=== PATIENT | female | born 1950 | race Caucasian/White ===

== ENCOUNTER 2016-11-20 05:45 | Inpatient (IN) | payer MEDICARE, OTHER ==
[2016-11-20] VITALS (18 sets, daily range): BP systolic 128–179; BP diastolic 7–86; PULSE 72–89; RESP 11–22; O2SAT 92–100
[~2016-11-20] VITALS: Ht 165.1 cm; Wt 96.3 kg
[2016-11-20] MEDS: Lactated Ringer's 1,000 ML IV SCH ×7 (05:00→21:25)
[~2016-11-20 05:45] MED LIST: IBUP200C PO
[2016-11-20] MEDS ORDERED: CeFAZolin 2 Gm/50 mL D5W IV Premix IV ONE (06:00)
[2016-11-20] MEDS ORDERED: Ondansetron 2 mg/mL 2 mL Inj IVPUSH PRN (07:20)
[2016-11-20] MEDS ORDERED: MetoCLOpramide 5 mg/mL 2 mL Inj IVPUSH PRN (07:20)
[2016-11-20] MEDS ORDERED: Dexamethasone 4 mg/mL Inj IVPUSH PRN (07:20)
[2016-11-20] MEDS ORDERED: HYDROmorphone 1 mg/mL Inj IVPUSH PRN (07:20)
[2016-11-20] MEDS ORDERED: fentaNYL-PF 50 mCg/mL 2 mL Inj IVPUSH PRN (07:20)
[2016-11-20] MEDS ORDERED: EPHEDrine Sulfate 50 mg/mL Inj IVPUSH PRN (07:20)
[2016-11-20] MEDS ORDERED: Lactated Ringer's 500 ML IV PRN (07:20)
[2016-11-20] MEDS ORDERED: Lactated Ringer's 1,000 ML IV SCH (07:20)
[2016-11-20] MEDS ORDERED: Phenylephrine 10,000 mCg/mL Inj IVPUSH PRN (07:20)
--- NOTE | 2016-11-20 07:21 | PCM.HPANE ---
Patient Data Surgeon Admitting Provider: Attending Provider:Martine Veliz MD Primary Care Physician:Nick Escobedo MD Other Provider:Adriana Hurtado Anesthesia Reason for Visit Metastatic Colorectal Cancer Ht/WT & BMI Height (Feet): 5 Height (Inches): 6.00 Weight (Kilograms): 90.0 Body Mass Index 31.00 Allergies Coded Allergies: Penicillins (Verified Allergy, Severe, UNKNOWN, 11/19/16) amoxicillin (Verified Allergy, Severe, UNKNOWN, 11/19/16) Past Anesthesia History Anesthesia History: Denies:: Abnormal Airway, Anesthesia Reactions, Difficult Intubation, Fam Malignant Hypertherm, Malignant Hyperthermia Diabetes History Hx Diabetes?: No Type of Diabetes: Type II Current Bedside Blood Glucose: 120 MRSA MRSA: No Medications Hypertension Medication: No Home Meds Incl Beta Khoi: No Reported Medications Ibuprofen 200 Mg [id number] Mg PO PRN PRN For Pain Ref 0 06/13/15 History History of ENT Problems?: Yes HEENT History: Positive for:: Sinus Problem (HX SINUSITIS,EPISTAXIS) Denies:: Abnormal Airway Difficult Intubation Hearing Problem Hx of Heart Problems?: Yes Cardiovascular History: Positive for:: Heart Murmur (hx of from childhood) Hypertension Thrombophlebitis (HX OF RT JUGULAR/SUBCLAVIAN CLOT 2012) Denies:: Cardiac Surgery Chest Pain Congestive Heart Failure Edema Pacemaker Other Cardiac History: C/OF BRUISING EASILY Hx of Respiratory Problem?: Yes Respiratory History: Positive for:: Cough Denies:: Asthma Chest Surgery Dyspnea Oxygen Administration Pneumonia Tuberculosis Use of C-PAP Machine Hx Neurologic Problems?: No Neurological History: Denies:: CVA Hx of GI Problems?: Yes Gastrointestinal History: Denies:: Diverticulitis Gastroesphageal Reflux Gastrointestinal Bleeding Heartburn Hepatitis Hiatal Hernia Rectal Bleeding Other GI Pertinent History: METATASTIC COLORECTAL CA 2/ RT KIDNEY INVOLVEMENT= CURRENT PROBLEM S/P SIGMOID COLECTOMY,LAP APPY/PELVIC TUMOR RESECTION/HYST W/ BSO/COLOSTOMY,COLOSTOMY TAKEDOWN/LYSIS OF ADHESIONS,PORT A CATH PLCMT,RT UPPER POLE RENAL BX FOR CA Hx of Problems?: Yes Genitourinary History: Denies:: HX of Hemodialysis Other Pertinent History: METASTATIC COLORECTAL CA W/ RT UPPER POLE KINEY INVOLVEMENT Female Hx: Denies:: Currently Endometriosis Pelvic Inflammatory Problems with Breasts? Skin History: Denies:: History Skin Disorders? Pressure Ulcers Hx Musculoskeletal Problems?: No Hx of Psycho/Social Problems?: No Psycho Social History: Denies:: Anxiety Bipolar Disorder Hx Depression Suicide Attempt Hx Surgeries?: Yes (appy, colon resection/colostomy, COLON CA,ADHESIONS, omentum removed) Hx Any Other Health Problems?: No Other History: Positive for:: Cancer (METATASTIC COLORECTAL CA W/ RT KIDNEY INVOLVEMENT) Hospitalization (04/06 for colon resection) Denies:: Endocrine Disease Thyroid Disease History Blood Transfusions: Denies:: Blood Transfuse Reaction Blood Transfusions Hx Diabetes: NoBedside Blood Glucose: 120 Hx Alcohol Use: YesAlcoholic Drinks Per Day: 1/DAYHx Substance Use: Yes (( LIQUIID [employer]) no current use) Smoking Status: Never Smoker Have You Smoked inLast 12 mo: No Stop/Bang Treated for Sleep Apnea?: No Do You Have a CPAP Machine?: No S-Snoring: Do You Snore Loudly: No T-Tired: feel tired, fatigued: No O-Obsered: Observed not breath: No P-Blood Pressure: treated: No B- Body Mass Index > 35 kg/m2: No A- Age over 50: Yes N- Neck Large Circumference: No G- Gender Male: No EZIO Total Score: 1 EZIO Risk Assessment: Low Risk, <3 Yes Risk Assessment Category Category 1A: Patient has history of documented sleep apnea, and HAS NOT received any narcotic, sedative or anesthesia administration during this stay. Category 1B: Patient has history of documented sleep apnea, and HAS received any narcotic , sedative or anesthesia administration during this stay Category 2: Patient has SUSPECTED Obstructive Sleep Apnea, and HAS received any narcotic , sedative or anesthesia administration during this stay. Category 3: Patient has SUSPECTED Obstructive Sleep Apnea and HAS NOT received narcotic, sedative or anesthesia administration during this stay. Category 4: Outpatient in Procedural Areas with known sleep apnea or who screen positive for High Risk via the STOP/BANG questionnaire. Exam Exam Vital Signs Vital Signs Date Time Temp Pulse Resp B/P Pulse Ox O2 Delivery O2 Flow Rate FiO2 11/20/16 06:20 36.4 72 18 179/76 98 Room Air General Appearance: Alert, Oriented X3, Cooperative, No Acute Distress HEENT/AIRWAY: MP 2 Lungs: Clear to Auscultation, Normal Air Movement Heart: Exam Unremarkable, Regular Rate/Rhythm, No Murmurs/Rubs/Gallops Meds/Labs/Diagnostics Admission Meds Current Medications Lactated Ringer's (Lr) 1,000 ml @ 120 mls/hr Q8H20M IV Last administered on t 05:50; Start 11/20/16 at 05:00; Stop 11/20/16 at 13:19 Bedside Blood Glucose: 120 Plan Impression Patient chart reviewed, patient interviewed and anesthestic plan with risks, benefits, and alternatives discussed, and informed consent obtained. NPO Status: 9PM ASA Physical Status: ASA3 Severe Disease (metastatic colon cancer to bowel and kidney) Anesthetic Plan: GA Bene/Risks/Altern/Consents: Yes HP Complete Prior to Induction: Yes Jeremy Jones MD Nov 20, 2016 07:21
[2016-11-20] MEDS ORDERED: Bupivacaine-MPF 0.25%/EPI 30 mL Inj INJ ONE (07:40)
[2016-11-20] MEDS ORDERED: Mannitol 25% 12.5 Gm/50 mL Inj IVPUSH ONE ×2 (11:10→12:05)
[2016-11-20] MEDS ORDERED: Furosemide 10 mg/mL 2 mL Inj IVPUSH ONE (12:05)
[2016-11-20] MEDS ORDERED: fentaNYL-PF 50 mCg/mL 2 mL Inj ONE (12:54)
[2016-11-20] MEDS ORDERED: HYDROmorphone 2 mg/mL Inj ONE (12:54)
[2016-11-20] MEDS ORDERED: Ketamine 10 mg/mL 20 mL Inj ONE (12:54)
[2016-11-20] MEDS ORDERED: HYDROmorphone PCA 0.2 mg/mL 30 mL Inj IV PRN (13:15)
--- NOTE | 2016-11-20 13:41 | OP ---
[address] [address] OPERATIVE REPORT PATIENT: KANG HOLLINS : 1950 MR#: [id number] ADMIT: 11/20/2016 JOB ID: [id number] DATE OF SURGERY: 11/20/2016 PREOPERATIVE DIAGNOSIS(ES): Colorectal metastasis to the superior pole of the right kidney. POSTOPERATIVE DIAGNOSIS(ES): Colorectal metastasis to the superior pole of the right kidney. PROCEDURE PERFORMED: Laparoscopic retroperitoneal dissection on the right. This was performed as a joint case between myself and Dr. Hutson. The case proceeded to an open right partial nephrectomy, which will be separately dictated by Dr. Hutson. SURGEON: Martine Veliz MD. HISTORY OF PRESENT ILLNESS: This is a 66-year-old woman who in 2012, had an obstructing cancer of the sigmoid colon. She had an emergent sigmoid resection with a Galina's and an end-colostomy in [place]. 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 Later, she underwent ileostomy takedown. She recovered from all of this and recently was found to have an enlarging nodule located between the superior pole of the right kidney and the right adrenal gland. It was PET avid, and she underwent biopsy, which showed metastatic adenocarcinoma consistent with a colorectal primary. This was the only sign of malignancy in her body, and therefore resection was indicated. FINDINGS: Metastatic nodule was adjacent to and appeared to be invading the superior pole of the right kidney. DESCRIPTION OF PROCEDURE: The patient was brought to the operating room and placed in supine position. General anesthesia was induced. A warming blanket and SCD were placed. Antibiotics were infused. She was repositioned into the left lateral decubitus position. A Mazariegos had been placed. The bed was flexed, and a paris bag was desufflated. She was appropriately secured with towels and tape, and pressure points were appropriately padded. The operative field was prepped and draped in a sterile fashion. A pause was performed to confirm the correct patient, procedure, site, and side. A transverse 12 mm incision was made at the tip of the 12th rib. The subcutaneous tissues were dissected and the lumbosacral fascia was opened with a peon. A finger was inserted to confirm presence in the retroperitoneal space. A Greer port was inserted, and insufflation was performed to 30 mmHg. The initial dissection of the retroperitoneal space was performed with the 0-degree scope. Two additional 5-mm ports were placed, the first was medial and inferior to the original port, the second medial and superior to it, to form a triangle approximately 4 cm on each side. The retroperitoneal space was carefully dissected. Fatty structures were medialized. Ultimately, it became clear that due to the short space between the lower rib cage and the iliac crest, and the patient's body habitus, there would not be enough space within the retroperitoneum to perform the full dissection necessary to find the lesion of interest at the superior and medial aspects of the kidney. After approximately 1 hour of operating, the decision was made to convert to open. The ports were removed. The 10-mm Greer port fascia was closed at the end of the case with an interrupted 0 Vicryl stitch. The remainder of the procedure, open partial nephrectomy, is dictated by Dr. Hutson. ESTIMATED BLOOD LOSS: 10 mL. SPECIMENS: Superior pole of right kidney. COMPLICATIONS: None.
[2016-11-20 14:38] LABS: APPEARANCE,URINE HAZY (CLEAR,HAZY); COLOR,URINE STRAW (YELLOW); OCCULT BLOOD,URINE TRACE (NEGATIVE); PH,URINE 6.5 (5.0-8.0)
[2016-11-20 14:39] LABS: UROBILINOGEN,URINE NORMAL (NORMAL)
--- NOTE | 2016-11-20 14:45 | PCM.ANEP2 ---
Post Anesthesia Evaluation ASA/CMS Post Anesthesia VS in Patient's Normal Range?: Yes Resp Stable; Airway Patent?: Yes CV Function & Hydration Stable: Yes Mental Status Recovered?: Yes Pain control Satisfactory?: Yes N/V Control Satisfactory?: Yes Jeremy Jones MD Nov 20, 2016 14:45
--- NOTE | 2016-11-20 14:45 | PCM.ANEP1 ---
Post Anesthesia Phase 1 PACU Phase 1 Assessment Vital Signs Vital Signs Date Time Temp Pulse Resp B/P Pulse Ox O2 Delivery O2 Flow Rate FiO2 11/20/16 14:00 80 11 139/74 99 Nasal Cannula 2 11/20/16 13:45 80 15 150/7 98 Nasal Cannula 2 11/20/16 13:35 78 12 136/68 96 Nasal Cannula 2 11/20/16 13:30 36.7 80 13 128/70 92 Room Air 11/20/16 13:20 82 13 140/73 100 Room Air 11/20/16 13:15 82 14 156/76 100 Simple Mask 10 11/20/16 13:10 83 15 160/81 100 Simple Mask 10 11/20/16 13:05 85 17 157/72 100 Simple Mask 10 11/20/16 13:00 87 19 166/81 100 Simple Mask 10 11/20/16 12:57 36.6 89 22 177/85 97 Simple Mask 10 Anesthetic Administered: GA Level of Alertness: Sleepy, easy to arouse CHAPA's with Equal Strength: Yes Pain: Yes Pain Scale Score: 5 Nausea or Vomiting: No Oxygen Delivery: Simple Mask Lungs: Clear to Auscultation, Normal Air Movement Dermatome Level: Full Sensation Jeremy Jones MD Nov 20, 2016 14:45
--- NOTE | 2016-11-20 14:51 | OP ---
[address] [address] OPERATIVE REPORT PATIENT: KANG HOLLINS : 1950 MR#: [id number] ADMIT: 11/20/2016 JOB ID: [id number] CORRECTED REPORT DATE OF SURGERY: 11/20/2016 PREOPERATIVE DIAGNOSIS(ES): Right retroperitoneal metastasis of colon cancer. POSTOPERATIVE DIAGNOSIS(ES): Right retroperitoneal metastasis of colon cancer. PROCEDURE PERFORMED: 1. Right open partial nephrectomy. 2. Right partial adrenalectomy. 3. Intraoperative ultrasound. SURGEON: Aster Hutson MD TEEN COUNSELOR: 1. Martine Veliz MD (her expert assistance was required for exposure of the mass). 2. Anjali Schmidt PA-C FINDINGS: 1. A greater than 3 cm retroperitoneal mass involving the upper pole of the right kidney posteriorly. 2. Desmoplastic reaction surrounding tumor adherent to perinephric fat as well as posterior body wall and adrenal gland. ANESTHESIA: General. ESTIMATED BLOOD LOSS: 150 mL. DRAINS: 1. A 19 round SHAYY drain. 2. Mazariegos catheter to the bladder. SPECIMEN: 1. Deep base of tumor. 2. Right retroperitoneal mass and adjacent kidney. COMPLICATIONS: None. CONDITION: Stable. INDICATION FOR THE PROCEDURE: The patient is a 66-year-old woman with stage 4 colon cancer. On surveillance imaging she was found to have a 2 cm right retroperitoneal mass that appeared to either abut or invade the kidney. This mass was biopsied and proven to be metastatic colon cancer. She has been consented for a laparoscopic retroperitoneal metastasectomy versus a partial nephrectomy with possible conversion to open. DESCRIPTION OF THE PROCEDURE: After informed consent was obtained, the patient was taken to the operating room. A time-out was performed identifying correct patient, surgical site, and procedure. General anesthesia was smoothly induced. She was given intravenous antibiotics. A Mazariegos catheter was placed into the patient's bladder under sterile technique. She was placed in the left lateral decubitus position over a beanbag and gel pad. All pressure points were identified and appropriately padded. The initial procedure was a right retroperitoneoscopy. This portion of the procedure will be dictated separately by Dr. Martine Veliz. Please, see separately dictated note. Given the unfavorable anatomy and location of the tumor, it was decided to convert the procedure to an open metastasectomy. At this point, I became the primary surgeon. It was difficult to palpate her ribs through her skin given her body habitus; however, it was planned to make a flank incision between the tips of the right 11th and 12th ribs, extending subcostally. Skin was incised with a 10 blade, and Bovie electrocautery was used to incise the subcutaneous tissues including fat, muscle, and fascia. There was a costal nerve seen there, and it was spared. Entry into the retroperitoneum was gained. The peritoneal cavity was bluntly and manually pushed anteriorly. Gerota's fascia was incised sharply. The perinephric fat was divided with Bovie electrocautery. The lower pole of the kidney could be seen. Her ribcage was quite low at the inferior margin. The perinephric fat was removed from the mid and lower pole of the kidney, thereby exposing the ureteral insertion into the hilum. The ureter was then tagged with a vessel loop. There were two renal veins seen on CT scan that were also visualized intraoperatively. The hilum was dissected with right angle and Bovie. The two renal veins were tagged with vessel loops. There was an artery between these two veins and this was also tagged with a vessel loop. Coming up to the mid and upper pole of the kidney, these attachments were divided. Posteriorly and superiorly the mass could be palpated. The superior attachments and anterior attachments of the kidney were divided with the LigaSure. The mass could be palpated, and there was a desmoplastic reaction around the fat covering the tumor, as well as posteriorly along the body wall and adrenal gland. LigaSure was used to divide the superior attachments and thereby mobilize the kidney inferiorly. Partial adrenalectomy was performed as it could not be avoided in order to release the upper pole of the kidney. The upper pole could then be brought into the field and the tumor could be seen under the perinephric fat that it was attached to. Intraoperative ultrasound was performed. It did appear that the tumor not only abutted but invested into the kidney. Ultrasound verified that there was some involvement there. Bovie electrocautery was used to score the capsule with a 1 cm margin around the tumor insertion to the kidney. Mannitol 12.5 g was given intravenously. A curved bulldog loaded on pean was then placed on the renal artery. The kidney was then iced for 10 minutes with slush. Next, the Bovie tip was used to dissect free the tumor from the kidney. Metzenbaums were also used at the base to sharply excise the tumor. A margin was sent from the kidney side. Frozen section revealed this to be normal kidney, without evidence of malignancy. The tumor was then passed off the table to pathology with a silk stitch marking the base. Next argon beam laser coagulation was used at the perimeter of the defect. 4-0 Vicryl was used to close any small arterial bleeding and then another 4-0 was used at the base in running fashion to close it. Two Surgicel rolls were used within the defect. 0 chromic loaded with Surgicel pledgets x4 was used for the renorrhaphy stitches. These were all tied down in succession, with pledgets on each end. The bulldog clamp was removed. Total clamp time was 25 minutes. Another 12.5 grams of intravenous mannitol was given with 10 mg of Lasix. The kidney reperfused. The hilum appeared normal, with a pulsating artery. The vessel loops were removed. Floseal and Surgicel were placed along the region where the superior attachments to the kidney and adrenal were taken down. Next the kidney was placed in orthotopic position. The Gerota's fascia was closed with 2-0 chromic in running fashion. A 19 round Sergio-Vasquez drain was placed over it and brought out through one of the retroperitoneoscopy incision sites. It was adhered to the skin with a 2-0 nylon. The fascial layers were then closed with looped 0 PDS in two layers. The wound was irrigated copiously. 3-0 Vicryl was used to close the subcutaneous fat. A 4-0 Monocryl in running subcuticular fashion was used to close the skin. Dermabond was placed over the skin wounds The other laparoscopic sites were closed with 4-0 Monocryl. Prior to closing the flank incision, Dr. Veliz did close the 10/12 port site from within the abdomen with an 0-Vicryl stitch in a [id number] fashion. The patient was then placed in supine position and reversed from general anesthesia and taken to the PACU in good and stable condition. All sponge, instrument, and needle counts were correct at the end of the case. COCO
--- NOTE | 2016-11-20 14:53 | DRSVH ---
PROCEDURE: X-RAY CHEST ONE VIEW, PORTABLE ([id number]) INDICATIONS: assess for r ptx TECHNIQUE: One view of the chest was acquired. COMPARISON: [facility], , ABD ACUTE SERIES, 09/18/2013, 9:40. [facility], , ABD ACUTE SERIES, 09/19/2013, 8:23. [facility], , ABD ACUTE SERIES, 09/22/2013, 9 :54. [facility], , XR CHEST 1VW (PORTABLE), 09/23/2016, 16:54. [facility], CHEST 1VW (PORTABLE), 09/19/2013, 1:14. FINDINGS: Surgical changes and devices: Small amount of right subdiaphragmatic air. Lungs and pleura: No pleural effusions or pneumothorax. Mild patchy opacity at the left lung base.. Mediastinum: Mediastinal contours appear normal. Heart size is normal. Bones and chest wall: There is subcutaneous emphysema within the right chest wall. No suspicious bony lesions. Overlying soft tissues appear unremarkable. IMPRESSION: 1. Subcutaneous emphysema within the right chest wall, without direct evidence of pneumothorax. 2. Left basilar atelectasis versus pneumonia. 3. Small amount of post surgical pneumoperitoneum. 4. Findings discussed with Dr. Veliz on 11.20.16 at 1450 hours. Dictated by: Catalino Mark M.D. on 11/20/2016 at 14:42 Approved by: Catalino Mark M.D. on 11/20/2016 at 14:50
[2016-11-20] MEDS ORDERED: Morphine PCA 1 mg/mL 30 mL Inj IV ONE (15:12)
[2016-11-20] MEDS: Morphine PCA 1 mg/mL 30 mL Inj - Standard IV PRN (15:29)
--- NOTE | 2016-11-20 17:50 | PCM.PNSURG ---
Subjective Visit Information: Reason for Visit Metastatic Colorectal Cancer Surgery/Surgery Date Post-Op Day # Date of Admission: Nov 20, 2016 at 14:14 Hospital Day # Subjective: Postop check. Stable, vitals normal, c/o pain, SHAYY with serosanguinous fluid. CXR no PTX. Air under diaphragm on cxr is expected. Objective Vital Sign- Last 8 Hours Date Time Temp Pulse Resp B/P Pulse Ox O2 Delivery O2 Flow Rate FiO2 11/20/16 17:25 36.8 82 16 144/80 99 Nasal Cannula 3.00 11/20/16 14:48 35.8 78 14 150/86 99 Nasal Cannula 3.00 11/20/16 14:45 Simple Mask 11/20/16 14:00 80 11 139/74 99 Nasal Cannula 2 11/20/16 13:45 80 15 150/7 98 Nasal Cannula 2 11/20/16 13:35 78 12 136/68 96 Nasal Cannula 2 11/20/16 13:30 36.7 80 13 128/70 92 Room Air 11/20/16 13:20 82 13 140/73 100 Room Air 11/20/16 13:15 82 14 156/76 100 Simple Mask 10 11/20/16 13:10 83 15 160/81 100 Simple Mask 10 11/20/16 13:05 85 17 157/72 100 Simple Mask 10 11/20/16 13:00 87 19 166/81 100 Simple Mask 10 11/20/16 12:57 36.6 89 22 177/85 97 Simple Mask 10 Intake and Output- Last 8 Hour 11/20/16 Cumulative From/Thru 07:00 11/19/16 09:05 - 11/20/16 06:20 Intake Total 0 ml 0 ml Balance 0 ml 0 ml IV Total 0 ml 0 ml General: No Acute Distress, Other (sleepy) Abdomen: Soft, Other (dressing c/d/i) Assessment & Plan Impression POD0 partial nephrectomy for colorectal metastasis on the R. Problems: Plan I added tylenol IV q6h, postop cbc/bmp for baseline, q6h blood glucose checks ( 176 currently, I had the RN check at bedside). Dr. Herbert Rivas will be rounding for my team over the weekend. Martine Veliz MD Nov 20, 2016 17:50
[2016-11-20 18:08] LABS: Mean Corpuscular Hemoglobin 29.6 pg (27.0-35.0); Mean Corpuscular Volume 90.1 fL (81-100)
[2016-11-20] MEDS: Ondansetron 2 mg/mL 2 mL Inj IVPUSH PRN (18:10)
--- NOTE | 2016-11-20 20:19 | NUR ---
Arrival to Floor, Nausea Patient arrived to floor from PACU at 1449. Patient sleepy, but easily awoke to voice. Surgical site well approximated but leaking small amount of sanguinous fluid, dressing applied. SHAYY draining sanguinous fluids. Patient on 3L of O2 via NC, sats in mid to upper 90s. Mazariegos catheter draining to gravity. Ordered fluids hung and FONDANT COOKER set up with charge nurse assistance. Patient had one episode of emesis, ordered antiemetic administered, nausea relieved. Care is ongoing.
[2016-11-20] MEDS: Acetaminophen IV 1,000 MG in IV Premix 1 EACH IV SCH (21:21)
[2016-11-20] MEDS: oxyCODONE-Acetamin 5-325 mg Tablet PO PRN (21:25)
[2016-11-21] VITALS (10 sets, daily range): BP systolic 131–145; BP diastolic 74–82; PULSE 77–88; RESP 16–18; O2SAT 92–100
[2016-11-21] MEDS: Acetaminophen IV 1,000 MG in IV Premix 1 EACH IV SCH ×4 (03:45→22:15)
--- NOTE | 2016-11-21 05:16 | NUR ---
Pain / nausea Incisional pain rated 7 last evening. 2 percocet given and within 20 minutes she felt nauseous and had a small emesis. Declined Zofran and additional Percocet; states she felt better now. Encouraged only sips and chips overnight and she has had no further nausea. IV Tylenol given and she states incisional pain @ 3.
[2016-11-21] MEDS: Lactated Ringer's 1,000 ML IV SCH (05:52)
[2016-11-21] MEDS: Ondansetron 2 mg/mL 2 mL Inj IVPUSH PRN ×3 (06:14→16:09)
[2016-11-21] MEDS: oxyCODONE-Acetamin 5-325 mg Tablet PO PRN (06:29)
--- NOTE | 2016-11-21 06:30 | NUR ---
increasing upper back pain overnight. Prior nausea resolved. Denies cardiac history. Dr Rae notified and EKG obtained. Normal Sinus. 2 percocets given and pain decreased to 5. Hospitalist at bedside to live.
--- NOTE | 2016-11-21 09:16 | NUR ---
Mazariegos catheter Urinary catheter removed at 0910 hrs. Will assist pt to BSC to void when needed. Care continues.
[2016-11-21] MEDS: Morphine PCA 1 mg/mL 30 mL Inj - Standard IV PRN (10:06)
--- NOTE | 2016-11-21 10:26 | PCM.PNSURG ---
Subjective Date of Service: Nov 21, 2016 Date of Service: Nov 21, 2016 Subjective: Patient presently reports abdominal/flank incisional pain well-controlled by IV AUTOMATIC PRESSER, occasional nausea (relieved by Zofran), no vomiting (did have vomiting last night), tolerating sips of clears, has not had flatus or BM yet. Patient had upper back pain (with no chest pain) early this AM, with back pain presently resolved. Patient has not been OOB yet. Mazariegos was removed this AM, and patient has not been able to void yet. Objective Vital Sign- Last 8 Hours Date Time Temp Pulse Resp B/P Pulse Ox O2 Delivery O2 Flow Rate FiO2 11/21/16 10:24 85 94 Room Air 11/21/16 10:20 18 95 11/21/16 06:04 18 96 Intake and Output- Last 8 Hour 11/21/16 Cumulative From/Thru 07:00 11/19/16 09:05 - 11/21/16 06:17 Intake Total 1797 ml 4297 ml Output Total 770 ml 2200 ml Balance 1027 ml 2097 ml Intake Oral 400 ml 450 ml IV Total 1397 ml 3847 ml Output Urine Total 500 ml 1725 ml Emesis 200 ml 200 ml Drainage Total 70 ml 125 ml Estimated Blood Loss 150 ml Mazariegos urine output: 325/500ml last 2 8hr. shifts SHAYY drain output: 55/70ml last 2 8hr. shifts General: Alert, Oriented X3, Cooperative, No Acute Distress Neck: Supple Lungs: Normal Air Movement Abdomen: Soft, Appropriately tender, Non-distended, Other (no rebound or guarding) SURGICAL WOUND : Wound Location/Description Dressing clean/dry/intact Wound Drainage Type: SHAYY Drain #1 (in place, draining serosang. drainage) Extremities: Other (+B/L SCD boots) Neuro: Normal Speech, Sensation Intact Catheters: None Result Diagram: 11/21/16 0555 11/21/16 0555 Diagnostics: Chest X-ray (11/20): no pneumothorax, small amount of R subdiaphragmatic air ( expected post-op) Assessment & Plan Impression POD #1, s/p open R partial nephrectomy and R partial adrenalectomy (for colorectal met), afebrile, hemodynamically stable, with good urine output, with labs this AM showing Hct stable at 40.4 and Cr normal at 1.03 Problems: Plan Continue IV AUTOMATIC PRESSER, Percocet PRN, Zofran PRN Continue IVF Continue clears Aggressive pulmonary toilet (incentive spirometry 10x/hr. and cough and deep breathing Q2h while awake) Encourage OOB to chair and ambulation with assistance Record all voids Continue SHAYY drain to self-suction Hospitalist consult requested for evaluation of upper back pain (to R/O cardiac/ medical etiology) Check labs (CBC, BMP) in AM VTE Prophylaxis: SCDs Resuscitation Status: CPR: Attempt Resuscitation Yogi Rae MD Nov 21, 2016 10:26
[2016-11-21] MEDS: D5 0.45% NaCl + KCl 20 mEq/L 1,000 ML IV SCH ×2 (14:47→22:14)
--- NOTE | 2016-11-21 16:30 | NUR ---
Nausea / Vomiting Pt has had two episodes of nausea with emesis today, both following ingestion of small amounts of food (apple juice this a.m. and cream soup at lunch). Administered 4 mg IVP Zofran after each occurrence, and this helped. Pt is able to tolerate ice chips and sips of room temperature water. Reassured pt that this is okay; she does not need to jaramillo to eat at this point in her recovery (pt is POD 1). Encouraged pt to take ice chips as much as possible. Pt is agreeable to this plan. Care continues.
--- NOTE | 2016-11-21 18:13 | PCM.CHPMED ---
Subjective Date of Service: Nov 21, 2016 Provider requesting consult: Yogi Rae MD Primary Physician: Admitting Physician: Martine Veliz MD Primary Care Physician: Nick Escobedo MD Attending Physician: Aster Hutson MD Chief Complaint: Chief Complaint: back pain History of Present Illness: 66 year old female with history of biopsy-proven metastatic adenocarcinoma of colon who is post chemo and extensive abdominal surgery was found to have an isolated metastasis in the right perinephric area on recent surveillance CT by her oncologist, Dr. Rodney. She was admitted yesterday and underwent right open partial nephrectomy and right partial adrenalectomy. Other than her cancer she is otherwise generally healthy without any history of HTN, DM, CAD, or pulmonary issues. Early this morning patient reported to her nurse new onset of left upper back pain (around her left posterior shoulder area) that was otherwise non-radiating and without any other associated symptoms of SOB, diaphoresis, palpitation, nausea, vomiting, or lightheadedness. She describes the pain as muscular pain and attributes it to laying on her back since yesterday. She tried to move around in bed to see if she could get some relief but the pain at her surgical site prevented her from significant movement or readjustment in bed. Hospitalist team has been consulted for further assessment and to rule out possible cardiac etiology given that patient was apparently pointing to her chest when describing the pain. On further questioning patient insists that she has not been having any anterior chest pain and the reason she was pointing to her anterior chest wall was to indicate the location of the pain in her back since she couldn't reach back to point to it. Review of Systems: Constitutional: Denies: Chills, Fever, Malaise Eyes: Denies: Vision Changes ENT: Denies: Nasal Congestion, Throat Pain Neck: Denies: Pain Cardiovascular: Denies: Chest Pain, Edema, Irregular Heart Rate, Palpitations, Rapid Heart Rate, SOB on Exertion, SOB while laying flat Respiratory: Denies: Cough, Shortness of Breath Gastrointestinal: Reports: Abdominal Pain (at right lower and flank at site of recent surgery), Denies: Black tarry stools, Blood in stool (red), Diarrhea, Nausea, Vomiting Genitourinary: Denies: Dysuria Musculoskeletal: Denies: Shoulder Pain, Weakness Skin: Denies: Itching, Rash, Ulcers Neurological: Denies: Change in Speech, Dizziness, Numbness, Tremors, Vertigo Psychologic: Denies: Anxiety, Depression Endocrine: Denies: Diaphoresis, Excessive Thirst, Intolerant to Cold, Urinating Frequently, Weight Gain Hematologic: Denies: Abnormal Bleeding, Bruising Lymphatic: Denies: Adenopathy PMH Past Medical History Per earlier notes by oncology (Dr. Rodney): 1. Biopsy-proven metastatic adenocarcinoma consistent with colon origin, right perinephric medially placed mass, September 23, 2016 biopsy, with PET-CT imaging showing that this lesion has grown but that it is isolated. PET-CT scan dated August 28, 2016. 2. Prior history of locally advanced colon cancer with a large pelvic tumor treated preoperatively with FOLFOX chemotherapy, then subsequently treated by Dr. Baltazar at the [facility] with HIPEC therapy and surgery. 3. Original surgery was an open appendectomy, greater omentectomy, resection of pelvic tumor greater than 10 cm, AYLIN, BSO, small bowel and bladder flap nodule removal, bilateral ureterolysis and posterior pelvic exenteration with subsequent ileostomy, takedown at the splenic flexure. She received intraperitoneal hyperthermic chemotherapy with mitomycin-C. The surgery was on April 15, 2014. The pelvic mass was largely fluid-filled containing some malignant cells. 4. Prior to that, the original tumor was a T4a N2 M1, stage IV locally advanced colon cancer with pelvic metastasis and a large pelvic mass. Treated in [place] while she was on vacation. 5. Ileostomy with exploratory laparotomy and primary repair of small bowel laceration in August 2014. 6. Originally thought to have stage III based on consultation here on April 20, 2013, but based on outside records it became clear that it was actually localized stage IV. Hx Any Other Health Problems?: NoHx Diabetes: NoBedside Blood Glucose: 164 Home Medications Ibuprofen prn Allergies: Coded Allergies: Penicillins (Verified Allergy, Severe, UNKNOWN, 11/19/16) amoxicillin (Verified Allergy, Severe, UNKNOWN, 11/19/16) Family History Family History Mother with CAD in her 70's Social History Hx Alcohol Use: YesAlcoholic Drinks Per Day: 1/DAYHx Substance Use: Yes (( LIQUIID [employer]) no current use)Hx Tobacco Use: No Smoking Status: Never Smoker Exam Vital Signs Vital Sign - Last Date Time Temp Pulse Resp B/P Pulse Ox O2 Delivery O2 Flow Rate FiO2 11/21/16 18:09 79 95 Room Air 11/21/16 14:50 36.8 18 136/82 11/21/16 00:47 3.00 Intake and Output 11/20/16 11/20/16 11/21/16 Cumulative From/Thru 15:00 23:00 07:00 11/19/16 09:05 - 11/21/16 06:17 Intake Total 2450 ml 50 ml 1797 ml 4297 ml Output Total 1050 ml 380 ml 770 ml 2200 ml Balance 1400 ml -330 ml 1027 ml 2097 ml Intake Oral 50 ml 400 ml 450 ml IV Total 2450 ml 1397 ml 3847 ml Output Urine Total 900 ml 325 ml 500 ml 1725 ml Emesis 200 ml 200 ml Drainage Total 55 ml 70 ml 125 ml Estimated Blood Loss 150 ml 150 ml General: Alert, Oriented X3, Cooperative, No Acute Distress Head: Normal Eyes: PERRLA, EOMI, Scleral Anicteric Nose: Mucous Membr Moist/[place] Mouth: Mucous Membr Moist/[place] Neck: Supple Chest & Lungs: Chest Wall Normal, Clear to auscultation & percussion Cardiovascular: Regular Rate/Rhythm Pulses: NL carotid, radial, femoral, DP, PT Abdomen: Tender, Non-distended, Normoactive bowel tones, Soft Musculoskeletal: Unremarkable Extremities: No cyanosis/clubbing/edma bilat Neurological: Grossly Neurologically Intact, Cranial Nerves 2-12 Intact, Normal Speech Lab and Diagnostics Result Diagram: 11/21/16 0555 11/21/16 0555 X-Rays, CTs and MRIs Date of Service: 11/20/16 1302 PROCEDURE: X-RAY CHEST ONE VIEW, PORTABLE ([id number]) IMPRESSION: 1. Subcutaneous emphysema within the right chest wall, without direct evidence of pneumothorax. 2. Left basilar atelectasis versus pneumonia. 3. Small amount of post surgical pneumoperitoneum. 4. Findings discussed with Dr. Veliz on 11.20.16 at 1450 hours. Dictated by: Catalino Mark M.D. on 11/20/2016 at 14:42 Approved by: Catalino Mark M.D. on 11/20/2016 at 14:50 12-lead ECG SR without any significant ST elevation/depression or TWI. no old EKG for comparison Assessment & Plan Assessment 66 year old female with history of biopsy-proven metastatic adenocarcinoma of colon who is post chemo and extensive abdominal surgery was found to have an isolated metastasis in the right perinephric area and is now s/p right open partial nephrectomy and right partial adrenalectomy on 11/20/16. She was having some left upper back/shoulder pain earlier this morning that has actually now fully resolved. # Acute left upper back pain, resolved - Likely musculoskeletal in origin - EKG unremarkable and reassuring - very low clinical suspicion of PE or dissection at this time given clinical picture, history and hemodynamic stability. Given recent kidney surgery I will not subject her to any IV contrast CT. - c/w supportive care for now - Her chest x-ray from 11/20 did show " Left basilar atelectasis versus pneumonia and Small amount of post surgical pneumoperitoneum." Consider repeating chest x-ray tomorrow if symptoms reoccur or if leukocytosis still persist. # Mild leukocytosis without any noted fever. - Likely reactive to the stress - f/u repeat labs in am # s/p right open partial nephrectomy and right partial adrenalectomy on 11/20/16 - further post-op management per primary urology team # History of metastatic colon cancer post chemo and surgery in the past - further f/u w/ oncology (Dr. Rodney) as outpatient # Mild acute kidney injury (based on mildly elevated Cr) - avoid nephrotoxic meds - f/u closely in light of recent partial nephrectomy # Code status: Full code. Discussed and verified with the patient Dispo: per primary urology team but from medical standpoint likely clear tomorrow if continue to remain asymptomatic and repeat labs stable. Thank you very much for allowing us to participate in this patient's care with you. The hospitalist team will continue to follow this patient with you. Problems: GI Prophylaxis: Not indicated VTE Prophylaxis: SCDs VTE Mechanical Devices: Intermittant Pneumatic CD Resuscitation Status: CPR: Attempt Resuscitation Time spent 60 min Waylon Rosario Nov 21, 2016 18:13 Waylon Rosario Nov 21, 2016 18:13
[2016-11-22] VITALS (8 sets, daily range): BP systolic 144–152; BP diastolic 82–87; PULSE 82–101; RESP 16–18; O2SAT 92–97
[2016-11-22] MEDS: Ondansetron 2 mg/mL 2 mL Inj IVPUSH PRN ×4 (03:57→20:42)
[2016-11-22] MEDS: oxyCODONE-Acetamin 5-325 mg Tablet PO PRN ×4 (04:09→20:42)
[2016-11-22] MEDS: D5 0.45% NaCl + KCl 20 mEq/L 1,000 ML IV SCH ×3 (05:50→15:16)
[2016-11-22 06:06] LABS: Mean Corpuscular Volume 90.4 fL (81-100)
--- NOTE | 2016-11-22 06:30 | NUR ---
Pain incisional pain remains 4-5 with use of ROUTE DRIVER MS. Intermittent upper back pain rated 7 this morning. Percocet given and effective - pain reduced to 4. Needs assist to get OOB to chair and ambulate. Voided at C brown colored urine.
--- NOTE | 2016-11-22 10:16 | PCM.PNSURG ---
Subjective Date of Service: Nov 22, 2016 Date of Service: Nov 22, 2016 Subjective: Patient presently reports improving R abdominal/flank incisional pain and improving upper back pain (well-controlled by IV LABEL PINKER and Percocet), improving nausea (occasional, relieved by Zofran), no vomiting (none since last night), tolerating small amounts of full liquid diet (had some cream of wheat this AM), has not had flatus or BM yet. Patient reports no chest pain, no shortness of breath. Patient has been OOB to chair and ambulated within room. Patient has been voiding without difficulty since Mazariegos removal yesterday. Patient was seen by hospitalist Dr. Rosario yesterday, with upper back pain thought to be non-cardiac in etiology. Objective Vital Sign- Last 8 Hours Date Time Temp Pulse Resp B/P Pulse Ox O2 Delivery O2 Flow Rate FiO2 11/22/16 09:25 16 94 11/22/16 06:15 37.1 82 16 144/83 93 Room Air 11/22/16 05:00 18 95 Intake and Output- Last 8 Hour 11/22/16 Cumulative From/Thru 07:00 11/19/16 09:05 - 11/22/16 03:00 Intake Total 4977 ml Output Total 2445 ml Balance 2532 ml Intake Oral 1130 ml IV Total 3847 ml Output Urine Total 1930 ml Emesis 200 ml Drainage Total 165 ml Estimated Blood Loss 150 ml Voided urine output: 600ml last 8hr. shift SHAYY drain output: 40/10ml last 2 8hr. shifts General: Alert, Oriented X3, Cooperative, No Acute Distress Neck: Supple Lungs: Normal Air Movement Abdomen: Soft, Appropriately tender, Non-distended, Other (no rebound or guarding) SURGICAL WOUND : Wound Location/Description Dressing clean/dry/intact. Incision clean/dry/intact, healing well. Wound Drainage Type: SHAYY Drain #1 (in place, draining serous>serosang. drainage) Neuro: Normal Speech, Sensation Intact Catheters: None Result Diagram: 11/22/1635 11/22/16534 Lab & Micro Results: 11/21/16: SHAYY drain fluid Cr 0.99 (=serum) Assessment & Plan Impression POD #2, s/p open R partial nephrectomy and R partial adrenalectomy (for colorectal met), afebrile, hemodynamically stable, with good urine output, with decreasing SHAYY drain output (with SHAYY drain fluid Cr 0.99 (=serum) yesterday), with labs this AM showing Hct stable at 37.7 and Cr normal at 0.79 Problems: Plan Continue IV LABEL PINKER, Percocet PRN, Zofran PRN Decrease IVF to 75ml/hr Continue full liquid diet Aggressive pulmonary toilet (incentive spirometry 10x/hr. and cough and deep breathing Q2h while awake) Encourage OOB to chair and ambulation with assistance. PT requested. Record all voids Continue SHAYY drain to self-suction Hospitalist consultation from Dr. Rosario appreciated Check labs (CBC) in AM VTE Prophylaxis: SCDs Resuscitation Status: CPR: Attempt Resuscitation Yogi Rae MD Nov 22, 2016 10:16
--- NOTE | 2016-11-22 11:18 | NUR ---
Social Work Note: Initial Assessment Data& Assessment: EMR reviewed. SW met with pt and pt spouse at bedside to discuss discharge planning, SW role explained. Charity Jeter is a 65 year old female admitted on 11/20/2016 for metastatic colorectal cancer. Pt has Medicare and [facility] Supplement insurance coverage. Pt sees Dr. Smith for primary care at the Oncology clinic. Pt lives in [place] with her spouse Shivani. Pt is independent at baseline with all ADL's. Pt drives and does not use any DME. Pt does not have a HH or SNF hx. Pt does not have LTC insurance or VA benefits. Pt does have DPOA paperwork completed, SW requested a copy when possible. Pt is currently independent in her room. SW provided SW phone number on pt [employer] board. Pt and pt denies any other needs at this time. Pt to transport pt home when medically ready. No other discharge needs identified at this time. SW to continue to follow if any needs arise. Plan: Anticipated discharge home via POV when medically ready. Pt and pt denies any other needs at this time. Pt to transport pt home when medically ready. No other discharge needs identified at this time. SW to continue to follow if any needs arise. RUSH Burns
--- NOTE | 2016-11-22 16:40 | PCM.PNMED ---
Subjective Date of Service Nov 22, 2016 Subjective Denies any new issues/complaints. says overall feeling much better Exam Vital Signs Vital Sign - Last Date Time Temp Pulse Resp B/P Pulse Ox O2 Delivery O2 Flow Rate FiO2 11/22/16 13:00 16 94 11/22/16 06:15 37.1 82 144/83 Room Air 11/21/16 00:47 3.00 Intake and Output 11/21/16 11/21/16 11/22/16 Cumulative From/Thru 15:00 23:00 07:00 11/19/16 09:05 - 11/22/16 03:00 Intake Total 680 ml 4977 ml Output Total 245 ml 2445 ml Balance 435 ml 2532 ml Intake Oral 680 ml 1130 ml IV Total 3847 ml Output Urine Total 205 ml 1930 ml Emesis 200 ml Drainage Total 40 ml 165 ml Estimated Blood Loss 150 ml Exam General: Alert, Oriented X3, Cooperative, No Acute Distress Head: Normal Eyes: PERRLA, EOMI, Scleral Anicteric Nose: Mucous Membr Moist/[place] Mouth: Mucous Membr Moist/[place] Neck: Supple Chest & Lungs: Chest Wall Normal, Clear to auscultation bilat Cardiovascular: Regular Rate/Rhythm Abdomen: Tender, Non-distended, Normoactive bowel tones, Soft Extremities: No cyanosis/clubbing/edema bilat Neurological: Grossly Neurologically Intact, Normal Speech IVs and Medications Medications Reviewed: Medications were reviewed in detail Lab and Diagnostics Result Diagram: 11/22/16 0535 11/22/16 0535 Assessment & Plan 66 year old female with history of biopsy-proven metastatic adenocarcinoma of colon who is post chemo and extensive abdominal surgery was found to have an isolated metastasis in the right perinephric area and is now s/p right open partial nephrectomy and right partial adrenalectomy on 11/20/16. She was having some left upper back/shoulder pain on 11/21 that has now resolved. # Acute left upper back pain, resolved - Likely musculoskeletal in origin - EKG unremarkable and reassuring - very low clinical suspicion of PE or dissection at this time given clinical picture, history and hemodynamic stability. Given recent kidney surgery will not subject her to any IV contrast CT. - c/w supportive care for now # Mild leukocytosis without any noted fever. - Likely reactive to the stress - Resolved # s/p right open partial nephrectomy and right partial adrenalectomy on 11/20/16 - further post-op management per primary urology team # History of metastatic colon cancer post chemo and surgery in the past - further f/u w/ oncology (Dr. Rodney) as outpatient # Mild acute kidney injury (based on mildly elevated Cr). Resolved - avoid nephrotoxic meds - f/u Dispo: per primary urology team but from medical standpoint clear for d/c GI Prophylaxis: Not indicated VTE Prophylaxis: SCDs VTE Mechanical Devices: Intermittant Pneumatic CD Resuscitation Status: CPR: Attempt Resuscitation Waylon Rosario Nov 22, 2016 16:40
--- NOTE | 2016-11-22 18:03 | NUR ---
Pain/Activity Pt still using GOLD LEAF LAYER Morphine. Discussed plans to potentially d/c it in the next few days. Pt is in agreement. Pt encouraged to ambulate at least 3 times this shift. Pt OOB to chair for most of shift and ambulated hallways via SBA x3 this shift. Call light w/in reach. Pt in recliner, wheels locked for safety.
[2016-11-23] VITALS (7 sets, daily range): BP systolic 137–154; BP diastolic 78–85; PULSE 76–84; RESP 16–18; O2SAT 94–98
[2016-11-23] MEDS: D5 0.45% NaCl + KCl 20 mEq/L 1,000 ML IV SCH ×2 (01:33→02:15)
[2016-11-23] MEDS: oxyCODONE-Acetamin 5-325 mg Tablet PO PRN (02:17)
--- NOTE | 2016-11-23 04:46 | NUR ---
PAIN; using percocet and submarine cable equipment technician m.s. for pain control. Slept well this shift. Up to bsc to void with standby assist.
--- NOTE | 2016-11-23 08:41 | PCM.PNSURG ---
Subjective Date of Service: Nov 23, 2016 Date of Service: Nov 23, 2016 Visit Information: Reason for Visit Metastatic Colorectal Cancer Surgery/Surgery Date Post-Op Day # 3 Date of Admission: Nov 20, 2016 at 14:14 Hospital Day # 4 Subjective: Ms Jeter reports doing overall well. She has had twinges of nausea but no emesis. She is walking. Her pain is controlled using FILAMENT COIL WINDER and Percocet. She has not had flatus/BM yet. No problems with FLD. Gastrointestinal: Good Appetite Pain Management: PO, FILAMENT COIL WINDER without Basal Objective Vital Sign- Last 8 Hours Date Time Temp Pulse Resp B/P Pulse Ox O2 Delivery O2 Flow Rate FiO2 11/23/16 07:54 16 98 11/23/16 05:30 36.9 84 16 151/85 94 Room Air 11/23/16 04:45 16 94 11/23/16 02:32 16 94 Intake and Output- Last 8 Hour 11/23/16 Cumulative From/Thru 07:00 11/19/16 09:05 - 11/23/16 05:00 Intake Total 695 ml 7401 ml Output Total 3525 ml Balance 695 ml 3876 ml Intake Oral 1730 ml IV Total 695 ml 5671 ml Output Urine Total 2980 ml Emesis 200 ml Drainage Total 195 ml Estimated Blood Loss 150 ml General: Alert Abdomen: Benign, Soft, Appropriately tender (wound is c/d/i with moderate ecchymosis present. SHAYY w serous fluid, scant, in bulb) Extremities: Warm Neuro: Cranial Nerves 2-12 nl Catheters: None Result Diagram: 11/22/16 0535 11/22/16 0535 Assessment & Plan Impression POD# 3 RIGHT open partial Nx, doing well Problems: Plan I removed the SHAYY w/o incident today We discussed plan - DC FILAMENT COIL WINDER - Percocet and IV morphine PRN - Possible DC planning today or tomorrow We reviewed restrictions - Activity - Home with IS We reviewed intraop findings We discussed wound care - She may shower today - No baths/submersions VTE Prophylaxis: SCDs Resuscitation Status: CPR: Attempt Resuscitation Aster Hutson MD Nov 23, 2016 08:40
--- NOTE | 2016-11-23 08:43 | PCM.DISURG ---
Surgical Discharge Instruction Date of Service Nov 23, 2016 Dates of Hospitalization Date of Hospital Admission Nov 20, 2016 at 14:14 Providers Admitting Physician: Aster Hutson MD Primary Care Physician: Nick Escobedo MD Attending Physician: Aster Hutson MD Discharge Diagnosis Discharge Diagnosis Metastatic colon cancer Post Operative diagnosis Same Diet Discharge Diet: Diabetic Activity Discharge Activity-General: No lifting >10 pounds for 4-6 weeks, No driving while taking narcotic Dressing and Incisional Care Hygiene: May shower, NO bathtub, hot tub or whirlpool Follow Up Plan Follow Up Plan F/U [address] Hutson (commissary steward, please, call office [phone]) Call your provider for: Fever, Shortness of breath, Increasing abdominal pain, Vomiting, Discharge @ incision, pus discharge Aster Hutson MD Nov 23, 2016 08:43
[2016-11-23] MEDS: Ondansetron 2 mg/mL 2 mL Inj IVPUSH PRN (10:16)
--- NOTE | 2016-11-23 10:36 | NUR ---
Evaluation completed. Please go to "Notes" then click on "Assessments and Notes" (bottom left corner of screen). Then select appropriate discipline tab on top of screen.
[2016-11-23] MEDS ORDERED: Ondansetron 8 mg ODT Tablet PO PRN (11:00)
--- NOTE | 2016-11-23 17:19 | NUR ---
Pain Patient reported 5/10 back pain. 650 mg of acetaminophen given. Denies nausea. Patient repositions self for comfort. Call light and tray table within reach. Will continue to monitor patient hourly.
--- NOTE | 2016-11-23 18:44 | PCM.PNMED ---
Subjective Date of Service Nov 23, 2016 Subjective Denies any new issues/complaints. Exam Vital Signs Vital Sign - Last Date Time Temp Pulse Resp B/P Pulse Ox O2 Delivery O2 Flow Rate FiO2 11/23/16 18:33 16 94 11/23/16 14:39 36.9 76 137/78 Room Air 11/21/16 00:47 3.00 Intake and Output 11/22/16 11/22/16 11/23/16 Cumulative From/Thru 15:00 23:00 07:00 11/19/16 09:05 - 11/23/16 05:00 Intake Total 100 ml 1629 ml 695 ml 7401 ml Output Total 610 ml 470 ml 3525 ml Balance -510 ml 1159 ml 695 ml 3876 ml Intake Oral 100 ml 500 ml 1730 ml IV Total 1129 ml 695 ml 5671 ml Output Urine Total 600 ml 450 ml 2980 ml Emesis 200 ml Drainage Total 10 ml 20 ml 195 ml Estimated Blood Loss 150 ml Exam General: Alert, Oriented X3, Cooperative, No Acute Distress Head: Normal Eyes: Scleral Anicteric Nose: Mucous Membr Moist/[place] Mouth: Mucous Membr Moist/[place] Neck: Supple Neurological: Grossly Neurologically Intact, Normal Speech IVs and Medications Medications Reviewed: Medications were reviewed in detail Lab and Diagnostics Result Diagram: 11/22/1635 11/22/16 0535 Assessment & Plan 66 year old female with history of biopsy-proven metastatic adenocarcinoma of colon who is post chemo and extensive abdominal surgery was found to have an isolated metastasis in the right perinephric area and is now s/p right open partial nephrectomy and right partial adrenalectomy on 11/20/16. She was having some left upper back/shoulder pain on 11/21 that has now resolved. # Acute left upper back pain, resolved - Likely musculoskeletal in origin - EKG unremarkable and reassuring - very low clinical suspicion of PE or dissection at this time given clinical picture, history and hemodynamic stability. Given recent kidney surgery will not subject her to any IV contrast CT. - c/w supportive care for now # Mild leukocytosis without any noted fever. - Likely reactive to the stress - Resolved # s/p right open partial nephrectomy and right partial adrenalectomy on 11/20/16 - further post-op management per primary urology team # History of metastatic colon cancer post chemo and surgery in the past - further f/u w/ oncology (Dr. Rodney) as outpatient # Mild acute kidney injury (based on mildly elevated Cr). Resolved - avoid nephrotoxic meds - f/u Dispo: per primary urology team but from medical standpoint clear for d/c. It seems that plan is to discharge patient tomorrow and so the hospitalist service will sign off at this point but will be available for any additional questions or concerns. GI Prophylaxis: Not indicated VTE Prophylaxis: SCDs VTE Mechanical Devices: Intermittant Pneumatic CD Resuscitation Status: CPR: Attempt Resuscitation Waylon Rosario Nov 23, 2016 18:44
--- NOTE | 2016-11-23 23:24 | NUR ---
Activity Pt up OOB SBA She grimaces with movement. Pt offered medication stronger than tylenol. Pt refuses. She is able to reposition and return to sleep with the aid of a pillow supporting her right flank. Will cont to monitor
[2016-11-24 05:19] VITALS: BP 168/84; PULSE 81; RESP 16; O2SAT 98
--- NOTE | 2016-11-24 08:01 | PCM.PNSURG ---
Subjective Date of Service: Nov 23, 2016 Visit Information: Reason for Visit Metastatic Colorectal Cancer Surgery/Surgery Date Post-Op Day # Date of Admission: Nov 20, 2016 at 14:14 Hospital Day # Subjective: Stable, pain improving, Cr <1, drain removed. Objective Vital Sign- Last 8 Hours Date Time Temp Pulse Resp B/P Pulse Ox O2 Delivery O2 Flow Rate FiO2 11/24/16 05:19 36.9 81 16 168/84 98 Room Air Intake and Output- Last 8 Hour 11/24/16 Cumulative From/Thru 07:00 11/19/16 09:05 - 11/24/16 05:49 Intake Total 500 ml 9068 ml Output Total 450 ml 6275 ml Balance 50 ml 2793 ml Intake Oral 500 ml 2850 ml IV Total 6218 ml Output Urine Total 450 ml 5720 ml Emesis 200 ml Drainage Total 205 ml Estimated Blood Loss 150 ml General: Alert, Oriented X3, Cooperative, No Acute Distress Abdomen: Other (R flank incision c/d/i with dermabond) Result Diagram: 11/22/16 0535 11/22/16 0535 Assessment & Plan Impression 66yof s/p lap converted to open retroperitoneal partial nephrectomy for an isolated colorectal metastasis progressing appropriately. Problems: Plan Continue current excellent management. OK to discharge when primary team feels she is ready. She may F/U with me on PRN basis. VTE Prophylaxis: SCDs Resuscitation Status: CPR: Attempt Resuscitation Martine Veliz MD Nov 24, 2016 08:01
[2016-11-24] MEDS: oxyCODONE-Acetamin 5-325 mg Tablet PO PRN (10:26)
--- NOTE | 2016-11-24 10:38 | NUR ---
Pain Patient reported 7/10 abdominal pain. 1 tab of Percocet given. Patient denies nausea at this time. Patient repositions self for comfort. Call light and tray table within reach. Will continue to monitor patient hourly.
--- NOTE | 2016-11-24 10:42 | PCM.PNSURG ---
Subjective Date of Service: Nov 24, 2016 Date of Service: Nov 24, 2016 Visit Information: Reason for Visit Metastatic Colorectal Cancer Surgery/Surgery Date Post-Op Day # 4 Date of Admission: Nov 20, 2016 at 14:14 Hospital Day # 5 Subjective: Ms Jeter reports doing well overall. She takes PO tylenol for pain with benefit. She ambulates. She has passed flatus this AM. She tolerates diet w/o N/ V. Postop General: No Complaints Gastrointestinal: Good Appetite, No N/V Pain Management: PO Postop Activity: Ambulating Independently Objective Vital Sign- Last 8 Hours Date Time Temp Pulse Resp B/P Pulse Ox O2 Delivery O2 Flow Rate FiO2 11/24/16 05:19 36.9 81 16 168/84 98 Room Air Intake and Output- Last 8 Hour 11/24/16 Cumulative From/Thru 07:00 11/19/16 09:05 - 11/24/16 05:49 Intake Total 500 ml 9068 ml Output Total 450 ml 6275 ml Balance 50 ml 2793 ml Intake Oral 500 ml 2850 ml IV Total 6218 ml Output Urine Total 450 ml 5720 ml Emesis 200 ml Drainage Total 205 ml Estimated Blood Loss 150 ml General: Alert Abdomen: Soft, Appropriately tender, Other (wound c/d/i with moderate ecchymosis; no erythema) Extremities: Warm Neuro: Cranial Nerves 2-12 nl Catheters: None Result Diagram: 11/22/16 0535 11/22/16 0535 Assessment & Plan Impression POD# 4, RIGHT open partial Nx Problems: Plan DC planning today We reviewed again wound care and activity restrictions Pathology pending We discussed her f/u in 2 wks VTE Prophylaxis: SCDs Resuscitation Status: CPR: Attempt Resuscitation Aster Hutson MD Nov 24, 2016 09:16
--- NOTE | 2016-11-24 13:21 | NUR ---
Discharge Patient discharged home. No IV to DC. Discharge instructions given with no questions. RX sent with patient's mother. No dressing on incision site. Incision CDI. All belongings sent with patient. [employer] and student nurse escorted patient out via W/C
--- NOTE | 2016-11-24 14:30 | NUR ---
Social Work Discharge: Order for discharge acknowledged. Plan as home with who to provide support and care and transport upon discharge. Therapy notes reviewed and recommendations are home with family support. No other identified discharge needs at this time. PLAN: Home with via POV, pending clinical course Dixie BEVERLY
--- NOTE | 2016-11-25 11:45 | PCM.DC.SUR ---
Discharge Summary Date of Service: Nov 25, 2016 Date of Hospital Admission: Nov 20, 2016 at 14:14 Date of Operation(s): 11/20/16 Date of Discharge: 11/24/16 Diagnosis at Time of Discharge Metastatic colon cancer Problems: Operation RIGHT retroperitoneoscopy RIGHT open partial nephrectomy Brief History and Physical: Ms Jeter is a 66 F with metastatic colon cancer s/p colectomy and chemorads. She had a solitary metastatic lesion adjacent to her RIGHT kidney. Consultants: Hospitalist Hospital Course: She underwent aforementioned procedures 11/20/16. She recovered on a regular hospital floor. Hospitalist was consulted for possible chest pain, which was later determined to be back pain and likely not of CV origin. Her pain was controlled by [employer] initially, then transitioned to PO only. By the time of DC, she was ambulating and tolerating regular diet w return of bowel function. Disposition: Home Follow-up Plan: 2 wks Aster Hutson MD Nov 25, 2016 11:44
[2017-02-18] MEDS ORDERED: ACET325T51 PO (15:15)
[2017-02-18] MEDS ORDERED: IBUP200C PO (15:15)
== END 2016-11-24 13:00 | disposition home or self-care (01) | DRG 657 ==
LOC: SAS 05:45 → OSC 14:14
PROVIDERS: ADMIT Surgery; ATTEND Urology
PROC: 0TT00ZZ Resection of Right Kidney, Open Approach (ICD-10-PCS; principal; 2016-11-20 07:15)
PROC: 0GB30ZZ Excision of Right Adrenal Gland, Open Approach (ICD-10-PCS; 2016-11-20 07:15)
DX: C79.01 Secondary malignant neoplasm of right kidney and renal pelvis (principal); C79.71 Secondary malignant neoplasm of right adrenal gland; Z53.31 Laparoscopic surgical procedure converted to open procedure

== ENCOUNTER 2017-07-12 10:05 | Emergency (ER) | payer MEDICARE, OTHER ==
[~2017-07-12] VITALS: Ht 167.6 cm; Wt 88.2 kg
[~2017-07-12 10:05] MED LIST changes: +ACET325T51 PO
[2017-07-12 10:08] VITALS: BP 187/87; PULSE 78; RESP 18; O2SAT 100
--- NOTE | 2017-07-12 10:23 | ED.REPORT ---
HPI-Syncope Date of Service Jul 12, 2017 ED Provider: Ta Baez MD A 67 year old female with a history of hypertension and metastatic colorectal cancer with right kidney involvement in remission presents to the ED complaining of a syncopal episode. The pt was walking with her sister this morning when she became suddenly dizzy and lightheaded. She ate a piece of cheese out of concern for her blood sugar, but subsequently experienced a brief syncopal episode. She fell at that point, landing on her left side. She hit her left knee, hand, shoulder and face. This resulted in pain in her right thumb, left shoulder, neck, left hand and left wrist. She denies chest pain, palpitations, shortness of breath, vomiting, back pain or seizure activity. The pt had walked 1.5 miles when she experienced this syncopal episode, which is normal for her, and has not been dehydrated. Her tetanus is not up to date. Nursing Notes Stated Complaint: FELL AND LANDED ON FACE AND ARM Chief Complaint: General Complaint Nursing Notes Reviewed: Yes Allergies: Coded Allergies: Penicillins (Verified Allergy, Severe, UNKNOWN, 11/19/16) amoxicillin (Verified Allergy, Severe, UNKNOWN, 11/19/16) Scheduled PRN Acetaminophen (Acetaminophen) 325 Mg Tablet 325 MG PO Q4H PRN PRN For Fever Ibuprofen (Ibuprofen) 200 Mg Capsule 200 MG PO QID PRN PRN For Pain General Time Seen by Provider: 10:16 Chief Complaint Other (Syncope) Hx Obtained From: Patient Arrived By: Walk-in Onset Occurred: 1 - 4 hours ago Recent Healthcare: Recent doctor visit Similar Sx Previous: No Past Medical History Past Medical History heart murmur in childhood hypertension thrombophlebitis (right jugular/subclavian clot 2012) metastatic colorectal cancer with right kidney involvement in remission Past Surgical History colon resection/colostomy omentum removed sigmoidectomy Reports: Appendectomy Smoking History Never Smoker Social History Drug Use: THC Other Social History: Good social support Ambulatory Status Independent Review of Systems Review of Systems Note: denies seizure activity Respiratory: Denies: Non-productive cough, Shortness of breath Cardiovascular: Denies: Chest pain, Palpitations GI: Denies: Abdominal pain, Vomiting Musculoskeletal: Reports: Extremity pain, Neck pain, Denies: Back pain Skin: Denies Rash Neurologic: Reports: Dizziness, Lightheaded, Syncope Complete sys rev & neg: except as marked. Physical Exam Initial Vital Signs Vital Signs (First) Date Time Temp Pulse Resp B/P Pulse Ox O2 Delivery O2 Flow Rate FiO2 07/12/17 10:08 36.8 78 18 187/87 100 Room Air Initial VS: Reviewed General/Constitutional: Awake, Alert Respiratory / Chest: Breath sounds NL, Breath sounds = bilat, No respiratory distress, No chest tenderness Cardiovascular: Heart rate NL, Regular rhythm, Heart sounds NL Lower Extremity / Pelvis / MS: Full range of motion, Neurologic intact, Vascular intact Neurologic: Oriented X3, Speech NL, No motor deficits, No sensory deficits, CN II - XII intact Head / Eyes: Normocephalic, PERRL, EOMI ENT: Airway patent, Mucous membranes moist Neck: Atraumatic, Supple, Full range of motion no cervical spine tenderness Abdomen: Atraumatic, Soft, Non-tender Back: Full range of motion no thoracic or lumbar spine tenderness Skin: Color NL, Warm, Dry bruising of the left cheek with some abrasions Psychiatric: Affect NL, Mood NL Upper Extremity / MS: Full range of motion, Neurologic intact, Vascular intact full range of motion of the left shoulder left shoulder nontender tenderness to the left fourth and fifth fingers bilateral upper extremities neurovascularly intact right distal thumb tenderness over the DIP joint Interpretation & Diagnostics Lab Results Interpretation Result Diagram: 07/12/17 1127 07/12/17 1127 Test 07/12/17 11:27 White Blood Count 8.4th/mm3 (3.8-10.1) Red Blood Count 4.78mil/mm3 (3.90-5.20) Hemoglobin 14.6g/dL (12.0-15.6) Hematocrit 43.1% (35.0-46.0) Mean Corpuscular Volume 90.2fL (81-100) Mean Corpuscular Hemoglobin 30.5pg (27.0-35.0) Mean Corpuscular Hemoglobin Concent 33.9% (32.0-37.0) Red Cell Distribution Width 12.6% (12.3-15.4) Platelet Count 195bil/L (150-400) Neutrophils (%) (Auto) 80.5% (40-74) Lymphocytes (%) (Auto) 11.2% (14-46) Monocytes (%) (Auto) 6.1% (4-12) Eosinophils (%) (Auto) 1.6% (0-5) Basophils (%) (Auto) 0.4% (0-3) Prothrombin Time 9.8sec (8.1-12.5) Prothromb Time International Ratio 0.92ratio Sodium Level 139mEq/L (134-144) Potassium Level 4.4mEq/L (3.5-5.2) Chloride Level 101mEq/L (97-108) Carbon Dioxide Level 21mmol/L (18-29) Blood Urea Nitrogen 16mg/dL (8-27) Creatinine 0.91mg/dL (0.57-1.00) Estimat Glomerular Filtration Rate 88mL/min (>59) Glucose Level 129mg/dL (60-99) Calcium Level 9.9mg/dL (8.5-10.1) Magnesium Level 2.1mg/dL (1.6-2.6) Total Bilirubin 0.5mg/dL (0.0-1.2) Aspartate Amino Transf (AST/SGOT) 20U/L (0-50) Alanine Aminotransferase (ALT/SGPT) 22U/L (0-32) Alkaline Phosphatase 103U/L (25-165) Troponin T 0.010ug/L (0.0-0.011) Total Protein 7.3g/dL (6.4-8.4) Albumin 4.5g/dL (3.4-5.0) ECG Interpretation ECG Interpretation: normal sinus rhythm with a rate of 69 Q waves in III and aVR no ST changes unchanged from previous Time: 11:18 Interpreted by: ED physician X-Ray Chest Interpretation Chest Xray Interpretation: IMPRESSION: No acute cardiopulmonary disease. Dictated by: Canelo Church M.D. on 07/12/2017 at 11:20 Approved by: Canelo Church M.D. on 07/12/2017 at 11:21 Interpretation / Wet Read by: Interpret - Radiologist X-Ray Interpretation Xray Interpretation: IMPRESSION: 1. No fracture or dislocation. 2. Moderate to severe degenerative disease of the acromioclavicular joint with undersurface osteophytes which could impinge the rotator cuff tendons. 3. Suspected calcific tendinitis of the rotator cuff. Dictated by: Canelo Church M.D. on 07/12/2017 at 11:18 Approved by: Canelo Church M.D. on 07/12/2017 at 11:20 X-Ray Ordered: Shoulder left Interpretation / Wet Read by: Interpret - Radiologist Xray Interpretation: IMPRESSION: Minimally displaced fracture at the base of the first distal phalanx. Dictated by: Canelo Church M.D. on 07/12/2017 at 11:22 Approved by: Canelo Church M.D. on 07/12/2017 at 11:24 X-Ray Ordered: Hand right Interpretation / Wet Read by: Interpret - Radiologist Xray Interpretation: IMPRESSION: 1. Mildly displaced comminuted fracture of the base of the fifth proximal phalanx. 2. Possible nondisplaced fifth metacarpal head and neck fracture. Dictated by: Canelo Church M.D. on 07/12/2017 at 11:15 Approved by: Canelo Church M.D. on 07/12/2017 at 11:18 X-Ray Ordered: Hand left CT Head Interpretation IMPRESSION: No acute intracranial disease process. Dictated by: Maria Dolores Hancock MD, PhD on 07/12/2017 at 10:02 Approved by: Maria Dolores Hancock MD, PhD on 07/12/2017 at 10:05 Interpretation / Wet Read by: Interpret - Radiologist Re-Eval/Medical Decision Med Decision/Clinical Course 67-year-old female with syncopal event. Her syncopal workup was negative here. She did have some trauma to her left face and bilateral hands. She had a normal CT brain. She has a fracture of her left fifth metacarpal and right first metacarpal. These were splinted. Neurovascularly intact status post splint placement. Patient will follow up with primary doctor possible orthopedics referral. I did discuss her syncopal event offered her hospitalization patient requests to go home. She understands the risks. She will return immediately if any further events. Source of Hx: Old records Re-Evaluation/Progress : Time of Eval: 12:33 Patient Status: Condition improved Re-Evaluation/Progress Note: Pt rechecked, who is comfortable and feels prepared for discharge. The diagnosis and plan for discharge are discussed. The pt understands and agrees with the plan. All questions are addressed at this time. Counseled Regarding: Diagnosis, Lab results, Need for follow-up, When/why to return to ED Discharge & Departure Impression: Primary Impression: Syncope Syncope type: unspecified Qualified Code: R55 - Syncope and collapse Additional Impressions: Fracture of thumb, right, closed Fracture of fifth metacarpal bone of left hand Disposition: Home Discharge Condition All VS Reviewed: Yes Condition: Stable Patient Instructions: Syncope (ED) Additional Instructions: Thank you for entrusting us with your care. Your evaluation was reassuring. Call your primary care physician to arrange a follow up appointment in the next several days. Return to the emergency department if you develop any new or worsening symptoms such as lightheadedness, dizziness, chest pain, shortness of breath, severe headache, weakness or numbness. Referrals: Nick Escobedo MD (PCP) Scribe Attestation Portions of this note were transcribed by Tony Gutiérrez. I, Dr. Baez personally performed the history, physical exam and medical decision-making; I reviewed and confirmed the accuracy of the information in the transcribed note. copies to: Nick Escobedo MD, Ben M MD Jul 12, 2017 10:23 TONY GUTIÉRREZ Jul 12, 2017 10:38
[2017-07-12] MEDS ORDERED: 0.9% Sodium Chloride 1,000 ML IV ONE (10:37)
--- NOTE | 2017-07-12 11:07 | DRSVH ---
PROCEDURE: CT BRAIN WITHOUT CONTRAST ([id number]) INDICATIONS: syncope TECHNIQUE: Noncontrast 4.5 mm thick angled axial sections acquired from the foramen magnum to the vertex, with c oronal reformats. COMPARISON: None. FINDINGS: Image quality: Excellent. CSF spaces: Basal cisterns are patent. No extra-axial fluid collections. The ventricles are symmet justina in size and shape. Brain: No intracranial bleeds or masses. There is cerebral volume loss for age, with resultant vent ricular and sulcal prominence. There are periventricular and deep white matter chronic small vessel ischemic changes. There is intracranial internal carotid artery and vertebral artery atherosclerosis . Skull and face: Calvarium and visualized facial bones appear intact, without suspicious lesions. Sinuses: Mucosal thickening noted in the right maxillary sinus. The mastoids are clear. IMPRESSION: No acute intracranial disease process. Dictated by: Maria Dolores Hancock MD, PhD on 07/12/2017 at 10:02 Approved by: Maria Dolores Hancock MD, PhD on 07/12/2017 at 10:05
--- NOTE | 2017-07-12 11:20 | DRSVH ---
PROCEDURE: X-RAY LEFT HAND, MINIMUM THREE VIEWS ([id number]) INDICATIONS: syncope TECHNIQUE: 3 views of the hand(s) acquired. COMPARISON: None. FINDINGS: Bones: There is a comminuted fracture at the base of the fifth proximal phalanx with intra-articular involvement and mild effacement. There is possible nondisplaced fracture of the fifth metacarpal head and neck. Carpal bones are normally aligned. No suspicious bony lesions. Soft tissues: No suspicious soft tissue calcifications. IMPRESSION: 1. Mildly displaced comminuted fracture of the base of the fifth proximal phalanx. 2. Possible nondisplaced fifth metacarpal head and neck fracture. Dictated by: Canelo Church M.D. on 07/12/2017 at 11:15 Approved by: Canelo Church M.D. on 07/12/2017 at 11:18
--- NOTE | 2017-07-12 11:22 | DRSVH ---
PROCEDURE: X-RAY LEFT SHOULDER, MINIMUM TWO VIEWS ([id number]) INDICATIONS: syncope TECHNIQUE: 3 views of the shoulder were acquired. COMPARISON: None. FINDINGS: Bones: No fractures or dislocations. There is moderate to severe acromioclavicular joint degenerati on with undersurface osteophytes. There is a calcific density over the humeral head suggesting calcif ic tendinitis. No suspicious bony lesions. Visualized ribs appear intact. Soft tissues: No suspicious soft tissue calcifications. IMPRESSION: 1. No fracture or dislocation. 2. Moderate to severe degenerative disease of the acromioclavicular joint with undersurface osteophyt es which could impinge the rotator cuff tendons. 3. Suspected calcific tendinitis of the rotator cuff. Dictated by: Canelo Church M.D. on 07/12/2017 at 11:18 Approved by: Canelo Church M.D. on 07/12/2017 at 11:20
--- NOTE | 2017-07-12 11:23 | DRSVH ---
PROCEDURE: X-RAY CHEST ONE VIEW, PORTABLE ([id number]) INDICATIONS: syncope TECHNIQUE: One view of the chest was acquired. COMPARISON: [facility], CR, XR CHEST 1VW (PORTABLE), 09/23/2016, 16:54. [facility], CR, XR CHEST 1VW (PORTABLE), 11/20/2016, 13:13. FINDINGS: Surgical changes and devices: None. Lungs and pleura: No pleural effusions or pneumothorax. Lungs are clear. Mediastinum: Mediastinal contours appear normal. Heart size is normal. Bones and chest wall: No suspicious bony lesions. Overlying soft tissues appear unremarkable. IMPRESSION: No acute cardiopulmonary disease. Dictated by: Canelo Church M.D. on 07/12/2017 at 11:20 Approved by: Canelo Church M.D. on 07/12/2017 at 11:21
--- NOTE | 2017-07-12 11:26 | DRSVH ---
PROCEDURE: X-RAY RIGHT HAND, MINIMUM THREE VIEWS ([id number]) INDICATIONS: syncope TECHNIQUE: 3 views of the hand(s) acquired. COMPARISON: None. FINDINGS: Bones: There is a minimally displaced fracture at the base of the first distal phalanx. Carpal bones are normally aligned. No suspicious bony lesions. Soft tissues: No suspicious soft tissue calcifications. IMPRESSION: Minimally displaced fracture at the base of the first distal phalanx. Dictated by: Canelo Church M.D. on 07/12/2017 at 11:22 Approved by: Canelo Church M.D. on 07/12/2017 at 11:24
[2017-07-12 11:38] LABS: BASOPHILS % (AUTO) 0.4 % (0-3); EOSINOPHILS % (AUTO) 1.6 % (0-5); MONOCYTES % (AUTO) 6.1 % (4-12); Mean Corpuscular Hemoglobin 30.5 pg (27.0-35.0); Mean Corpuscular Volume 90.2 fL (81-100); NEUTROPHILS % (AUTO) 80.5 % (40-74); Platelet Count 195 bil/L (150-400)
[2017-07-12 11:55] LABS: INR 0.92 ratio
[2017-07-12 12:03] LABS: TROPONIN T 0.01 ug/L (0.0-0.011)
[2017-07-12 12:15] LABS: Magnesium 2.1 mg/dL (1.6-2.6)
[2017-07-12 12:45] VITALS: BP_SYST 159; BP_SYST 162; BP_DIAS 80; BP_DIAS 86; PULSE 67; PULSE 69; RESP 20; O2SAT 100; O2SAT 97
[2017-07-12 13:05] VITALS: BP 162/86; PULSE 69; RESP 20; O2SAT 100
== END 2017-07-12 13:06 | disposition home or self-care (01) ==
LOC: SED 10:05
DX: S62.521A Displaced fracture of distal phalanx of right thumb, initial encounter for closed fracture (principal); S62.317A Displaced fracture of base of fifth metacarpal bone, left hand, initial encounter for closed fracture; R55 Syncope and collapse; W01.198A Fall on same level from slipping, tripping and stumbling with subsequent striking against other object, initial encounter; Y93.01 Activity, walking, marching and hiking; Y92.9 Unspecified place or not applicable; Y99.8 Other external cause status; I10 Essential (primary) hypertension; Z85.038 Personal history of other malignant neoplasm of large intestine; Z88.0 Allergy status to penicillin
CPT/HCPCS: 36415; 70450; 71010; 73030; 73130; 80053; 83735; 84484; 85025; 85610; 93005; 96360; 99285; J7030